=== PATIENT | male | born 1945 | race Caucasian/White ===

== ENCOUNTER 2018-02-22 14:56 | Emergency (ER) | payer MEDICARE, BC ==
[~2018-02-22] VITALS: Ht 177.8 cm; Wt 103.5 kg
[2018-02-22 15:40] LABS: BASOPHILS % (AUTO) 0.6 % (0-1); EOSINOPHILS # (AUTO) 0.2 X10'3 (0-0.9); EOSINOPHILS % (AUTO) 3.4 % (0-6); HEMATOCRIT 42.9 % (42.0-52.0); HEMOGLOBIN 14.9 g/dl (14.0-17.9); LYMPHOCYTES # (AUTO) 0.8 X10'3 (1.1-4.8); LYMPHOCYTES % (AUTO) 17.5 % (21-51); MEAN CORPUSCULAR HEMOGLOBIN 31.8 PG (27.0-31.0); MEAN CORPUSCULAR HGB CONC 34.8 % (33.0-36.5); MEAN CORPUSCULAR VOLUME 91.4 FL (78-98); MEAN PLATELET VOLUME 7.6 FL (7.4-10.4); MONOCYTES # (AUTO) 0.8 X10'3 (0-0.9); MONOCYTES % (AUTO) 16.2 % (2-12); NEUTROPHILS % (AUTO) 62.3 % (42-75); PLATELET COUNT 163 X10'3 (140-440); RED BLOOD COUNT 4.69 X10'6 (4.70-6.10); WHITE BLOOD COUNT 4.8 X10'3 (4.5-11.0)
[2018-02-22 15:49] LABS: INR 1.1 INR; PARTIAL THROMBOPLASTIN TIME 30 SECONDS (22-32); PROTHROMBIN TIME 11.2 SECONDS (9.0-12.0)
[2018-02-22 15:58] LABS: ALANINE AMINOTRANSFERASE 34 U/L (12-78); ALBUMIN 3.8 G/DL (3.4-5.0); ALKALINE PHOSPHATASE 126 IU/L (46-116); ANION GAP 10 (8-16); ASPARTATE AMINO TRANSFERASE 23 U/L (10-37); BILIRUBIN,TOTAL 0.5 MG/DL (0.1-1.0); BLOOD UREA NITROGEN 17 MG/DL (7-18); BUN/CREATININE RATIO 13.3 (5.4-32.0); CALCIUM 8.8 MG/DL (8.5-10.1); CHLORIDE 104 MMOL/L (99-107); CREATININE 1.28 MG/DL (0.60-1.10); GLUCOSE 122 MG/DL (70-104); POTASSIUM 3.7 MMOL/L (3.5-5.1); SODIUM 141 MMOL/L (135-145); TOTAL CARBON DIOXIDE 26.6 MMOL/L (24-32); TOTAL PROTEIN 7.5 G/DL (6.4-8.2); eGFR 55 ML/MIN
[2018-02-22] MEDS ORDERED: ipratropium/albuterol 3ml nebule NEB ONE ×2 (18:40→21:35)
[2018-02-22] MEDS ORDERED: methylPREDNISolone sod succ 125mg/2ml vial IV ONE (18:40)
[2018-02-22] MEDS ORDERED: levoFLOXACIN-Levaquin 750MG/D5 150 ML IV STA (18:53)
[2018-02-22] MEDS ORDERED: TRAZ-146 PO (20:05)
[2018-02-22] MEDS ORDERED: ATOR20TA66 PO (20:05)
[2018-02-22] MEDS ORDERED: ASPI-955 (20:05)
[2018-02-22] MEDS ORDERED: ESOM40CA54 PO (20:05)
[2018-02-22] MEDS ORDERED: LEVO175T2 PO (20:05)
[2018-02-22] MEDS ORDERED: PARO20TA6 PO (20:05)
[2018-02-22] MEDS ORDERED: PRED20TA PO (22:53)
[2018-02-22] MEDS ORDERED: AZIT250T PO (22:53)
[2018-02-22] MEDS ORDERED: ALBU8.5H8 IH (22:53)
[2018-02-22 23:01] VITALS: BP 137/77
== END 2018-02-22 23:03 | disposition home or self-care (01) ==
LOC: ER 14:57
DX: J40 Bronchitis, not specified as acute or chronic (principal); I25.10 Atherosclerotic heart disease of native coronary artery without angina pectoris; I25.2 Old myocardial infarction; G43.909 Migraine, unspecified, not intractable, without status migrainosus; Z79.899 Other long term (current) drug therapy
CPT/HCPCS: 36415; 71045; 80053; 83605; 83880; 84484; 85025; 85610; 85730; 87040; 93005; 94640; 94760; 96365; 96366; 96375; 99285; J1956; J2930

== ENCOUNTER 2024-06-05 14:08 | Emergency (ER) | payer BC, MEDICARE ==
[~2024-06-05 14:08] MED LIST: ALBU8.5H17 IH; ASPI-955; ATOR20TA66 PO; ESOM40CA66 PO; LEVO175T2 PO; PARO20TA6 PO; TRAZ-256 PO
== END 2024-06-05 14:28 | disposition left against medical advice (07) ==
LOC: ER 14:08
DX: I10 Essential (primary) hypertension (principal); Z53.21 Procedure and treatment not carried out due to patient leaving prior to being seen by health care provider

== ENCOUNTER 2025-08-26 09:51 | Day surgery (SDC) | payer BC ==
[2025-08-26] VITALS (12 sets, daily range): BP systolic 124–144; BP diastolic 60–72; PULSE 65–74; RESP 15–22; TEMP 97.8; O2SAT 95–100
[~2025-08-26] VITALS: Ht 177.8 cm; Wt 97.1 kg
[~2025-08-26 09:51] MED LIST changes: -ALBU8.5H17 IH; +ASPI-1265 PO; -ASPI-955; -ESOM40CA66 PO; +IRON PO; +PARO10TA4 PO; -PARO20TA6 PO; -TRAZ-256 PO; +VIT B12 PO; +VIT C PO; +ringers solution, lacted 1,000 ML IV SCH; +simethicone 40mg/0.6ml oral drops 15ml ONE
[2025-08-26] MEDS ORDERED: MIDAZolam 1 MG/ML 5ML VIAL ONE (13:09)
[2025-08-26] MEDS ORDERED: fentaNYL/PF 50MCG/1 ML 2ML syringe ONE (13:09)
--- NOTE | 2025-08-28 15:21 | PATHOLOGY REPORT ---
[facility] [address] [place] [address] SURGICAL PATHOLOGY REPORT CaseNumber: [id number] Surgeon:Tasha De La Rosa M.D. CLINICAL INFORMATION CLINICAL INFORMATION: Cecal mass. Iron deficiency anemia. DIAGNOSIS DIAGNOSIS: A.COLON, CECUM; BIOPSY - ADENOCARCINOMA. DIAGNOSIS: B.COLON, ASCENDING; BIOPSY - TUBULAR ADENOMAS, ALL PIECES. DIAGNOSIS: C.COLON, TRANSVERSE; BIOPSY - TUBULAR ADENOMAS, MULTIPLE PIECES. 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 DIAGNOSIS: E.COLON, RECTUM; BIOPSY - TUBULAR ADENOMA. MICROSCOPIC DESCRIPTION A. COLON, CECUM MICROSCOPIC DESCRIPTION: One H&E stained slide from part A is examined. Present are colonic mucosal pieces containing adenocarcinoma. The adenocarcinoma grows as single and complex glands, as well as individual cells and non-gland forming clusters. Nuclei are enlarged, pleomorphic, and contain prominent nucleoli. There is loss of polarization. The neoplasm is set within an altered fibroinflammatory stroma. B. COLON, ASCENDING MICROSCOPIC DESCRIPTION: One slide from part B is examined. Performed. C. COLON, TRANSVERSE MICROSCOPIC DESCRIPTION: One slide from part C is examined. Performed. D. COLON, SIGMOID MICROSCOPIC DESCRIPTION: Two slides from part D are examined. Performed. E. COLON, RECTUM MICROSCOPIC DESCRIPTION: One slide from part E is examined. Performed. (bb) GROSS DESCRIPTION A. COLON, CECUM GROSS DESCRIPTION: Received in a container of formalin labeled with the patient's name, number, and "cecum mass BX" is a 0.7 x 0.4 x 0.1 cm aggregate of irregularly shaped pieces of finnegan tissue submitted entirely as A1. The time at which the specimen was removed was not provided. The time at which the specimen was placed in formalin was not provided. B. COLON, ASCENDING GROSS DESCRIPTION: Received in a container of formalin labeled with the patient's name, number, and "ascending colon polyps" are four pieces of finnegan tissue 0.2-0.3 cm. The specimen is entirely submitted as B1. The time at which the specimen was removed was not provided. The time at which the specimen was placed in formalin was not provided. C. COLON, TRANSVERSE GROSS DESCRIPTION: Received in a container of formalin labeled with the patient's name, number, and "trans colon polyp" is a 1 x 0.8 x 0.2 cm aggregate of irregularly shaped pieces of finnegan tissue. The specimen is entirely submitted as C1. The time at which the specimen was removed was not provided. The time at which the specimen was placed in formalin was not provided. D. COLON, SIGMOID GROSS DESCRIPTION: Received in a container of formalin labeled with the patient's name, number, and "sigmoid polyp" is a 1.4 x 1.1 x 0.7 cm polypoid piece of finnegan tissue. The specimen is sectioned. The specimen is entirely submitted as D1-D2. The time at which the specimen was removed was not provided. The time at which the specimen was placed in formalin was not provided. E. COLON, RECTUM GROSS DESCRIPTION: Received in a container of formalin labeled with the patient's name, number, and "rectum polyp" are two polypoid pieces of finnegan tissue 0.4 x 0.3 x 0.1 and 0.5 x 0.3 x 0.2 cm. The specimen is entirely submitted as E1. The time at which the specimen was removed was not provided. The time at which the specimen was placed in formalin was not provided. SYNOPTIC REPORT SYNOPTIC TEXT: IMMUNOHISTOCHEMICAL (IHC) TESTING FOR MISMATCH REPAIR (MMR) PROTEINS - specimen A MLH1: Intact nuclear expression (normal) MSH2: Intact nuclear expression (normal) MSH6: Intact nuclear expression (normal) PMS2: Intact nuclear expression (normal) Antibody clones utilized (Dako): MLH1: ES05; MSH2: FE11; MSH6: EP49; PMS2: EP51 Detection system: EnVision FLEX detection kit Scoring system: Intact nuclear expression: Unequivocal nuclear staining in viable tumor cells, in the presence of acceptable internal positive controls (nuclear staining in lymphocytes, fibroblasts or normal epithelium in the vicinity of the tumor). Loss of nuclear expression: Unequivocal loss of nuclear staining or focal weak equivocal nuclear staining in the viable tumor cells in the presence of internal positive controls Comment: The use of diagnostic immunohistochemical stains is standard in most laboratories, though some antibodies are still under consideration by the Food and Drug Administration. Only formalin fixed paraffin embedded sections are utilized for testing purposes. The antibodies used in this study have been tested and shown to be effective in our Laboratory. Background nonneoplastic tissue with intact nuclear expression is present for internal control purposes. Electronically signed by: King Saha M.D. 08/28/2025 2:43:00 PM
[2025-09-16] MEDS ORDERED: MELATONIN PO (09:32)
[2025-09-16] MEDS ORDERED: TUMERIC PO (09:32)
[2025-09-16] MEDS ORDERED: MAGNESIUM PO (09:32)
[2025-09-16] MEDS ORDERED: MORINGA PO (09:32)
[2025-09-16] MEDS ORDERED: [UNRECOGNIZED DRUG - CODE] PO (13:17)
[2025-09-16] MEDS ORDERED: FERR-119 PO (13:17)
[2025-09-16] MEDS ORDERED: MAGN400C PO (13:17)
[2025-09-16] MEDS ORDERED: MELA3CAP2 PO (13:17)
[2025-09-16] MEDS ORDERED: ASCO10004 PO (13:17)
== END 2025-08-26 15:35 | disposition home or self-care (01) ==
LOC: GI LAB 09:51
PROVIDERS: ATTEND Internal Medicine Gastroenterology
DX: D50.9 Iron deficiency anemia, unspecified (principal); K57.30 Diverticulosis of large intestine without perforation or abscess without bleeding; D12.0 Benign neoplasm of cecum; D12.2 Benign neoplasm of ascending colon; D12.3 Benign neoplasm of transverse colon; D12.5 Benign neoplasm of sigmoid colon; D12.8 Benign neoplasm of rectum; E78.5 Hyperlipidemia, unspecified; Z83.3 Family history of diabetes mellitus; Z79.890 Hormone replacement therapy; Z79.82 Long term (current) use of aspirin; Z82.49 Family history of ischemic heart disease and other diseases of the circulatory system; Z95.1 Presence of aortocoronary bypass graft
CPT/HCPCS: 45380; 45385; 88305; 88341; 88342; 99153; G0500; J2250; J3010; J7120; Z7512; 45382; A4620; C1889

== ENCOUNTER 2025-09-17 12:32 | Inpatient (IN) | payer BC ==
[2025-09-16 09:40] LABS: MEAN PLATELET VOLUME 8.4 FL (7.4-10.4); PRE OP PLATELET COUNT 295 X10'3 (140-440); PRE OP WHITE BLOOD COUNT 6.3 10'3 (4.8-10.8)
[2025-09-16 10:13] LABS: CREATININE 1.07 MG/DL (0.60-1.10); PRE OP ALT 33 U/L (30-65); PRE OP ANION GAP 9 (8-16); PRE OP AST 24 U/L (10-37); PRE OP BILIRUB, TOTAL 0.7 MG/DL (0.0-1.0); PRE OP GLUCOSE 154 MG/DL (70-104); PRE OP POTASSIUM 3.8 MMOL/L (3.4-5.1); PRE OP SODIUM 142 MMOL/L (135-145); TOTAL CARBON DIOXIDE 26.2 MMOL/L (24-32); eGFR 66 ML/MIN
[2025-09-16 10:39] LABS: RED CELL DISTRIBUTION WIDTH 24.7 % (11.5-14.5)
[2025-09-16 10:41] LABS: PRE OP HEMATOCRIT 29.4 % (42.0-52.0); PRE OP HEMOGLOBIN 10.1 g/dL (14.0-17.9)
[2025-09-16 11:08] LABS: PLATELET ESTIMATE NORMAL
[2025-09-16 11:09] LABS: ELLIPTOCYTES 1+
[2025-09-17] VITALS (20 sets, daily range): BP systolic 123–160; BP diastolic 58–103; PULSE 63–89; RESP 16–28; TEMP 97.4–99.3; O2SAT 92–98
[~2025-09-17] VITALS: Ht 177.8 cm; Wt 90.6 kg
[2025-09-17] MEDS: ceFAZolin 2gm/dext,iso 50mL 50 ML IV ONE (05:30)
[~2025-09-17 12:32] MED LIST changes: +ASCO10004 PO; +FERR-119 PO; -IRON PO; +MAGN400C PO; +MELA3CAP2 PO; +MORINGA PO; +TUMERIC PO; -VIT B12 PO; -VIT C PO; +[UNRECOGNIZED DRUG - CODE] PO; -ringers solution, lacted 1,000 ML IV SCH; -simethicone 40mg/0.6ml oral drops 15ml ONE
[2025-09-17] MEDS: ringers solution, lacted 1,000 ML IV SCH (13:48)
--- NOTE | 2025-09-17 16:25 | HISTORY AND PHYSICAL ---
History & Physical Providers to CC CC: CAIN BASILIO MD ~ History of Present Illness Reason for Admit\Complaint: Colon cancer of the ascending colon History of Present Illness Patient is an 79-year-old gentleman who was seen by me in the office two days ago with new diagnosis of biopsy positive colorectal cancer. He has a remote history of anemia and was recently admitted to the hospital for this. In the hospital he received iron transfusion and blood transfusion. He was not willing to drink the prep for colonoscopy and this was done as an outpatient a week or two ago. Biopsy of a large mass in the cecum was positive for adenocarcinoma. He was referred to me for surgical management. He is here today for elective right hemicolectomy Allergies: Coded Allergies: No Known Allergies (Unverified , 01/17/13) Home Medications Home Medications Active Reported Melatonin 3 Mg Capsule 1 Cap PO HS Vitamin B-12 (Cyanocobalamin (Vitamin B-12)) 1,000 Mcg Tablet 1 Tab PO DAILY Vitamin C (Ascorbic Acid) 1,000 Mg Tablet 1 Tab PO DAILY DIRECTED Iron (Ferrous Sulfate) 325 Mg (65 Mg Iron) Tablet 1 Tab PO DAILY [Tumeric] PO DAILY [Moringa] PO DAILY PAXIL tablet (Paroxetine Hcl) 10 Mg Tablet 1 Tab PO Q48H 30 Days Aspirin 81 Mg Tab.chew 1 Tab PO DAILY 30 Days Atorvastatin Calcium 20 Mg Tablet 40 Mg PO HS Synthroid* (Levothyroxine Sodium) 175 Mcg Tab 1 Tab PO DAILY Past Medical History Past Medical History Hyperlipidemia Depression/anxiety Hypothyroidism Past Surgical History Surgical History Comment Laparoscopic cholecystectomy Knee surgery Family History Family History: FH: CABG (coronary artery bypass surgery) MOTHER FH: breast cancer MOTHER FH: diabetes mellitus FATHER Past Social History Social History Comment Negative x3 He is a retired bus driver school Health Maintenance Health Maintenance Not applicable ROS ROS Reviewed and negative with the exception of fatigue, dyspnea and other symptomatic anemia Exam Vitals: Vital Signs Date Time Temp Pulse Resp B/P (MAP) Pulse Ox O2 Delivery O2 Flow Rate FiO2 09/17/25 13:10 Room Air 09/17/25 13:10 97.4 63 16 127/58 (81) 98 General: 79-year-old male in no acute distress HEENT: No scleral icterus or conjunctival injection Neck: Supple and nontender Chest: Lungs clear to auscultation bilaterally Cardiovascular: Regular rate and rhythm without murmurs Abdomen: Soft and nondistended Extremities: Well-perfused without edema Central Nervous System: Grossly intact Musculoskeletal: 5/5 strength in all four extremities Skin: Warm and dry Diagnostic Data Last Recorded Lab Results: 09/16/[id number]/25921 Problems: (1) Colon cancer Assessment & Plan: The risks, benefits, and alternatives to a robotic assisted, laparoscopic possible open right hemicolectomy were discussed with the patient and his spouse. Risks include, but are not limited to, bleeding, infection, injury to intra-abdominal structures, leakage from the intestine and the need for additional surgery. Patient verbalized understanding and wishes to proceed with surgery. We will do so today as scheduled Problem Qualifiers (1) Colon cancer: Colon location: ascending Qualified Codes: C18.2 - Malignant neoplasm of ascending colon CAIN BASILIO MD Sep 17, 2025 16:25
[2025-09-17] MEDS ORDERED: BUPIVAcaine 2.5mg/ml inj 50ml vial (contains preservative) ONE (16:28)
[2025-09-17] MEDS ORDERED: LIDOcaine 1% 30ml preserv. free vial ONE (16:28)
[2025-09-17] MEDS ORDERED: INDOCYANINE GREEN 25 MG/10 ML VIAL IV ONE (16:31)
[2025-09-17] MEDS ORDERED: rocuronium 10mg/ml inj IV ONE (16:39)
[2025-09-17] MEDS ORDERED: fentaNYL /PF 50mcg/ml 5ml ampule ONE (16:39)
[2025-09-17] MEDS ORDERED: propofol inj 20 ML IV ONE (16:41)
[2025-09-17] MEDS ORDERED: metroNIDAZOLE-Flagyl 500mg/NS 100 ML IV ONE (17:07)
[2025-09-17] MEDS ORDERED: labetalol 20mg/4ml (5mg/ml) syringe IV PRN (17:30)
[2025-09-17] MEDS ORDERED: hydrALAZINE 20mg/ml inj. IV PRN (17:30)
[2025-09-17] MEDS ORDERED: ondansetron/PF 4mg/2ml inj IV PRN (17:30)
[2025-09-17] MEDS ORDERED: acetaminophen 1,000mg/100ml IV 100 ML IV PRN (17:30)
[2025-09-17] MEDS: LIDOcaine 1% 30ml preserv. free vial IJ ONE (18:52)
[2025-09-17] MEDS: BUPIVAcaine/PF 2.5 mg/ml (0.25%) 30ml vial IJ ONE (18:52)
[2025-09-17] MEDS ORDERED: ondansetron/PF 4mg/2ml inj ONE (19:07)
[2025-09-17] MEDS ORDERED: metoprolol tartrate 1mg/ml inj IV ONE (19:07)
[2025-09-17] MEDS ORDERED: glycopyrrolate 0.2mg/ml inj ONE (19:07)
[2025-09-17] MEDS ORDERED: PCA WASTE DOCUMENTATION 1 MG ML MC SCH (20:10)
--- NOTE | 2025-09-17 20:21 | OPERATIVE REPORT ---
Operative Report Providers to CC CC: BAUTISTA BASILIO MD ~ Date of Procedure: Sep 17, 2025 Pre-Operative Diagnosis: colon cancer Post-Operative Diagnosis SAME as PRE-Op Procedure Performed Robotic assisted, laparoscopic right hemicolectomy Surgeon: Bautista Basilio MD FACS Management Supervisor None Anesthesiologist: Sathya Davis Type of Anesthesia: General Findings: Tumor in the cecum adjacent to the ileocecal valve with no obvious extraluminal extension Isoperistaltic ileocolic anastomosis with excellent blood flow confirmed using firefly/fluorescent mesenteric angiography Wound class II Complications None Prosthetics\Implants used: None Estimated Blood Loss: Less than 20 cc Specimen Removed: Terminal ileum, ascending colon and proximal transverse colon Description of Procedure: Patient was brought to the operating room and identified by the nursing staff and the attending physician. Patient was placed supine and general anesthesia was induced. Preoperative antibiotics were given. Iqbal catheter was placed. The abdomen was prepped and draped in the standard sterile fashion. Veress needle technique was used at ramos's point in the abdomen was insufflated without incident. Abdomen was entered through the left mid abdomen and surveyed laparoscopically. Ports were placed in the suprapubic left lower abdomen and left upper quadrant. Stapling port was in the left upper quadrant. Patient was placed in Trendelenburg position with the right side up. PlayCrafter robotic arm was docked to the patient and instruments were guided into the abdomen under la paroscopic visualization. Small bowel was swept towards the left in the ascending colon was tented to the anterior abdominal wall. Right colic vessels were circumferentially dissected and the retroperitoneal plane was developed. Vessels were divided with the vessel sealer and the retroperitoneal plane mobilized. The duodenum was swept away from the right and transverse mesentery. Dissection was carried up to the hepatic flexure until a window was created visualizing the right lobe of the liver. Mesentery was divided anterior to the duodenum and carried up to the proximal transverse colon. Mesentery was divided using the vessel sealer down towards the terminal ileum. Window was created through the mesentery to the terminal ileum which was divided with a robotic linear cutting stapler. The proximal transverse colon was imaged using firefly technique showing line of devascularization. Just distal to this, the transverse colon was divided with a robotic linear cutting stapler. The white line of Toldt was divided, completely freeing up the specimen which was swept into the pelvis. Neoterminal ileum was laid adjacent to the proximal transverse colon and stay sutures were placed. An isoperistaltic, ileocolic anastomosis was created using a 60 mm linear cutting stapler. Enterotomy and colotomy were closed with a common running 3-0 V lock absorbable suture in a Beulah fashion. Suture line was reinforced with a running Lembert suture. Instruments were then removed and the de Jie robotic arm was undocked from the patient. The 12 mm port site was removed and it was closed percutaneously with 0 Vicryl suture under laparoscopic visualization. The specimen was secured with a laparoscopic grasper. The suprapubic port was lengthened transversely over the lower portion of the rectus muscle on the left. This was deepened down to the anterior rectus sheath which was opened in a vertical fashion and using muscle-splitting technique an Pee wound protector was placed. Specimen was delivered. Pee was removed. Gloves were changed. Peritoneum was closed with a running absorbable suture and the anterior rectus sheath was closed with a running PDS suture. Wound was irrigated and skin closed at all sites with skin ellie. Patient was awakened after dressings were applied and taken to the postanesthesia care unit in stable condition. Counts repoted as correct: Yes BAUTISTA BASILIO MD Sep 17, 2025 20:21
[2025-09-18] VITALS (7 sets, daily range): BP systolic 109–151; BP diastolic 45–66; PULSE 75–83; RESP 16–22; TEMP 97.1–99.8; O2SAT 90–95
[2025-09-18] MEDS: ketorolac trometh 15mg/ml vial 15 MG/ML ML IV SCH (02:31)
[2025-09-18 05:54] LABS: MEAN PLATELET VOLUME 8.5 FL (7.4-10.4); RED CELL DISTRIBUTION WIDTH 25.8 % (11.5-14.5)
[2025-09-18 06:10] LABS: CREATININE 1.01 MG/DL (0.60-1.10); TOTAL CARBON DIOXIDE 27.2 MMOL/L (24-32); eCRCL 59 ML/MIN; eGFR 71 ML/MIN
[2025-09-18] MEDS: ringers solution, lacted 1,000 ML IV SCH ×2 (07:04→16:08)
[2025-09-18] MEDS: levoTHYROXINE 175mcg tablet PO SCH (07:57)
[2025-09-18] MEDS: enoxaparin 40mg/0.4ml syringe SQ SCH (07:57)
--- NOTE | 2025-09-18 15:36 | PROGRESS NOTE ---
Progress Note Dictate Providers to CC ~ Progress Note: Subsequent surgical care on an 79-year-old gentleman who is postoperative day 1, status post robotic assisted, laparoscopic right hemicolectomy Passed a small amount of flatus Tolerating clear liquid diet Incisions dressed and dry Full liquid diet Anticipate discharge home in the next 24-48 hours Antibiotic Ordered?: No Objective Vitals Vital Signs Date Time Temp Pulse Resp B/P (MAP) Pulse Ox O2 Delivery O2 Flow Rate FiO2 09/18/25 10:23 97.1 76 16 112/56 (74) 92 Room Air 09/18/25 06:30 2.0 Lab Results: 09/18/25 0510 09/18/25 0510 Problem\Assessment\Plan Problems/Diagnosis: (1) Colon cancer Problem Qualifiers (1) Colon cancer: Qualified Codes: C18.2 - Malignant neoplasm of ascending colon CAIN BASILIO MD Sep 18, 2025 15:36
[2025-09-18] MEDS: ringers solution, lactated 500ml IV solution IV ONE (18:03)
[2025-09-19 05:59] LABS: CREATININE 0.92 MG/DL (0.60-1.10); TOTAL CARBON DIOXIDE 29.0 MMOL/L (24-32); eCRCL 65 ML/MIN; eGFR 79 ML/MIN
[2025-09-19 06:07] LABS: MEAN PLATELET VOLUME 8.5 FL (7.4-10.4); RED CELL DISTRIBUTION WIDTH 26.0 % (11.5-14.5)
[2025-09-19 06:30] VITALS: BP 140/62; PULSE 86; RESP 24; TEMP 98.2; O2SAT 93
[2025-09-19 06:54] LABS: PLATELET ESTIMATE NORMAL
[2025-09-19 06:55] LABS: ELLIPTOCYTES 1+
--- NOTE | 2025-09-19 09:12 | RADIOLOGY REPORT ---
Date: 09/19/2025 08:25 AM Examination: DI ABDOMEN,SINGLE VIEW(KUB) History: abdominal pain Comparison: None TECHNIQUE: Frontal views of the abdomen was obtained. FINDINGS: Bowel gas pattern is nonobstructive. Gaseous distended loops of colon and small bowel. Iqbal catheter projects over the expected region of the urinary bladder. Surgical clips project over the abdomen. The lung bases are collimated from field of view. No acute osseous abnormality identified. IMPRESSION: Nonspecific gas-filled loops of bowel.
[2025-09-19] MEDS: ringers solution, lacted 1,000 ML IV ONE (09:30)
[2025-09-19 10:00] VITALS: BP 161/64; PULSE 71; RESP 18; TEMP 98.3; O2SAT 96
--- NOTE | 2025-09-19 14:30 | PROGRESS NOTE ---
Progress Note Dictate Providers to CC ~ Progress Note: Subsequent surgical care on an 79-year-old gentleman who is postoperative day 2, status post robotic assisted, laparoscopic right hemicolectomy No flatus Incisions clean, dry, and intact Trial of regular diet Anticipate discharge home in the next 24-48 hours Antibiotic Ordered?: No Objective Vitals Vital Signs Date Time Temp Pulse Resp B/P (MAP) Pulse Ox O2 Delivery O2 Flow Rate FiO2 09/19/25 10:00 98.3 71 18 161/64 (96) 96 Room Air 09/19/25 09:30 1.0 Lab Results: 09/19/25 0520 09/19/25 0520 Problem\Assessment\Plan Problems/Diagnosis: (1) Colon cancer Problem Qualifiers (1) Colon cancer: Qualified Codes: C18.2 - Malignant neoplasm of ascending colon CAIN BASILIO MD Sep 19, 2025 14:30
[2025-09-19 18:00] VITALS: BP 158/56; PULSE 93; RESP 18; TEMP 98.3; O2SAT 96
[2025-09-19] MEDS: HYDROcodone/acetaminophen 5mg/325mg tablet PO PRN (18:53)
[2025-09-19 19:00] VITALS: RESP 18; O2SAT 96
[2025-09-19 22:00] VITALS: BP 133/56; PULSE 59; RESP 26; TEMP 98.9; O2SAT 93
[2025-09-20 06:00] VITALS: BP 145/64; PULSE 71; RESP 24; TEMP 98.5; O2SAT 94
[2025-09-20 06:03] LABS: MEAN PLATELET VOLUME 8.9 FL (7.4-10.4); RED CELL DISTRIBUTION WIDTH 25.7 % (11.5-14.5)
[2025-09-20 06:25] LABS: CREATININE 0.76 MG/DL (0.60-1.10); TOTAL CARBON DIOXIDE 28.2 MMOL/L (24-32); eCRCL 79 ML/MIN; eGFR > 90 ML/MIN
--- NOTE | 2025-09-20 11:04 | PROGRESS NOTE ---
Progress Note ID Providers to CC ~ Progress Note Progress Note: doing well/dc LINDA MURPHY MD Sep 20, 2025 11:04
--- NOTE | 2025-09-24 07:10 | PATHOLOGY REPORT ---
[facility] [address] [place] [address] SURGICAL PATHOLOGY REPORT CaseNumber: [id number] Surgeon:Bautista Valencia M.D. CLINICAL INFORMATION CLINICAL INFORMATION: The patient is an 79-year-old male with a previous history of an adenocarcinoma of the cecum. That specimen was examined and found to have ML1 intact nuclear expression, MSH2 intact nuclear expression, MSH6 intact nuclear expression, PSM2 intact nuclear expression. No defects in mismatch repair proteins (MMR) were detected ([id number], 08/26/2025). DIAGNOSIS DIAGNOSIS: COLON, ASCENDING; HEMICOLECTOMY - INVASIVE MODERATE TO POORLY DIFFERENTIATED ADENOCARCINOMA, 3 CM PROXIMAL TO DISTAL LENGTH, EXTENDING THROUGH MUSCULAR WALL INTO ADJACENT FAT. - RADIAL MARGIN CLEAR BY 2.5 CM. - PROXIMAL MARGIN CLEAR BY 3 CM. - DISTAL MARGIN CLEAR BY 26 CM . - METASTATIC MODERATE TO POORLY DIFFERENTIATED ADENOCARCINOMA TO FIVE OF THIRTEEN LYMPH NODES (5/13). MICROSCOPIC DESCRIPTION MICROSCOPIC DESCRIPTION: Eighteen slides are reviewed of the right ascending colon colectomy. Present undermining the small bowel is a large ulcerated moderate to poorly differentiated adenocarcinoma. As identified grossly the annular ulcerated neoplasm, measures 3 cm, in proximal to distal length. The medium sized malignant glands are lined by tall columnar dysplastic cells which demonstrate an increased n/c ratio. The nuclei are sometimes basally located and in other regions they palisade. The nuclei are oval to quite oblong. The chromatin is moderately coarse. Mitotic figures are quite numerous, 10 per one high power field. There is a moderately brisk desmoplastic reaction. The neoplasm undermines the small bowel mucosa of the ilial cecal region. There is small vessel invasion. The neoplasm extends completely through the muscular wall into the adjacent fat, though is grossly clear of the radial margins by 2.5 cm. Sections of the radial margin are fee of neoplasm. The proximal margin (ileum), and distal margin (colonic), are free of neoplasm. Thirteen lymph nodes are harvested. Five are found to contain metastatic moderate to poorly differentiated adenocarcinoma (5/13). The neoplasm broaches the lymph node capsule and extends into adjacent fat. Cross sections of the appendix reveal it to be benign without features of malignancy. The proximal appendiceal lining mucosa which is intact. Distally, there is fatty fibrous replacement of the lumen. The small bowel "polyp" was simply a fold of small bowell mucosa. (bb) GROSS DESCRIPTION GROSS DESCRIPTION: Received in a container of formalin labeled with the patient's name, number, and "ascending colon R colectomy" is a 32 cm length of bowel which includes 6 cm of terminal ileum, the ileocecal valve, and 26 cm of colon. The serosa is somewhat roughened and purple-finnegan. There is a uniform caliber vermiform appendix present which measures 5 cm long by 0.5 cm in diameter. Sectioning the appendix reveals a mildly dilated lumen containing stool. Both ends of the bowel are closed by a row of surgical ellie. The bowel is opened lengthwise to reveal a small amount of partially formed stool. 3 cm from the proximal mucosal resection margin and 26 cm from the distal mucosal resection margin is an annular ulcerated neoplasm which measures 3 cm proximal to distal. The neoplasm is present at the cecum near the base of the appendix and 2.5 cm from the closest radial resection margin. Sectioning the neoplasm reveals it invading and destroying the muscularis penetrating through to the fat. Sectioning the fat reveals thirteen lymph node candidates. Sections are submitted as follows: A1) Proximal mucosal resection marginA2) Distal mucosal resection marginA3) Closest radial resection marginA4) AppendixA5) Base of appendixA6-A9) [id number]) [id number] A12) Three lymph node candidates per [id number]) Two bisected lymph node candidates per [id number]) Single bisected lymph node [id number]) Single bisected lymph node [id number]) Single sectioned lymph node candidate The time at which the specimen was removed was not provided. The time at which the specimen was placed in formalin was not provided. (meb) SYNOPTIC REPORT SYNOPTIC TEXT: Colon and Rectum - Resection Specimen Procedure: Right hemicolectomy Tumor Tumor Site: Cecum Histologic Type: Adenocarcinoma Histologic Grade: G2, moderately differentiated Tumor Size: 3.0 Centimeters (cm) Tumor Extent: Invades through muscularis propria into the pericolic or perirectal tissue Macroscopic Tumor Perforation: Not identified Lymphatic and / or Vascular Invasion: Small vessel Perineural Invasion: Not identified Treatment Effect: No known presurgical therapy Margins Margin Status for Invasive Carcinoma: All margins negative for invasive carcinoma Closest Margin(s) to Invasive Carcinoma: Radial (circumferential) - 2.5 cm Distance from Invasive Carcinoma to Closest Margin: 2.5 cm Distance from Invasive Carcinoma to Radial (Circumferential) Margin: Distance already reported as closest margin Margin Status for Non-Invasive Tumor: All margins negative for high-grade dysplasia / intramucosal carcinoma and low-grade dysplasia Regional Lymph Nodes Regional Lymph Node Status: Tumor present in regional lymph node(s) Number of Lymph Nodes with Tumor: 5 Number of Lymph Nodes Examined: 13 Tumor Deposits: Not identified pTNM Classification (AJCC 8th Edition) Reporting of pT, pN, and (when applicable) pM categories is based on information available to the pathologist at the time the report is issued. As per the AJCC (Chapter 1, 8th Ed.) it is the managing physician's responsibility to establish the final pathologic stage based upon all pertinent information, including but potentially not limited to this pathology report. pT Category: pT3 pN Category: pN2a Prior Biopsy ([facility] Standard 2.1) A biopsy was performed in-house: ([id number], 08/26/2025 Additional Findings Additional Findings: None identified Best Tumor Blocks for Future Studies Tumor Block(s): A6-9 Normal Block(s): A1-2 ML1 intact nuclear expression, MSH2 intact nuclear expression, MSH6 intact nuclear expression, PSM2 intact nuclear expression. No defects in mismatch repair proteins (MMR) were detected ([id number], 08/26/2025). Electronically signed by: Itz Coley M.D. 09/23/2025 10:23:00 PM
--- NOTE | 2025-09-30 16:45 | DISCHARGE SUMMARY ---
Discharge Summary Providers to CC CC: BAUTISTA BASILIO MD ~ Discharge Summary Admission Diagnosis: colon cancer Admission Diagnosis Comment: Ascending colon cancer Hospital Course DATE OF ADMISSION: September 17, 2025 DATE OF DISCHARGE: September 20, 2025 Discharge Diagnosis\Comment: Ascending colon cancer Operations\Procedures: Robotic assisted, laparoscopic right hemicolectomy Consultants: Bautista Basilio MD FACS Complications: None Condition on DC: Stable Continued Medications: Ascorbic Acid (Vitamin C) 1,000 Mg Tablet 1 TAB PO DAILY DIRECTED Aspirin (Aspirin) 81 Mg Tab.chew 1 TAB PO DAILY for 30 Days, #30 TAB Atorvastatin Calcium (Atorvastatin Calcium) 20 Mg Tablet 40 MG PO HS Cyanocobalamin (Vitamin B-12) (Vitamin B-12) 1,000 Mcg Tablet 1 TAB PO DAILY Ferrous Sulfate (Iron) 325 Mg (65 Mg Iron) Tablet 1 TAB PO DAILY Levothyroxine* (Synthroid*) 175 Mcg Tab 1 TAB PO DAILY Melatonin (Melatonin) 3 Mg Capsule 1 CAP PO HS [Moringa] () PO DAILY Paroxetine Hcl (PAXIL tablet) 10 Mg Tablet 1 TAB PO Q48H for 30 Days, #30 TAB 0 Refills [Tumeric] () PO DAILY Discharge Summary: Patient was admitted for routine postoperative management following robotic assisted, laparoscopic right hemicolectomy for biopsy positive colorectal cancer. Final pathology was as follows: DIAGNOSIS: COLON, ASCENDING; HEMICOLECTOMY - INVASIVE MODERATE TO POORLY DIFFERENTIATED ADENOCARCINOMA, 3 CM PROXIMAL TO DISTAL LENGTH, EXTENDING THROUGH MUSCULAR WALL INTO ADJACENT FAT. - RADIAL MARGIN CLEAR BY 2.5 CM. - PROXIMAL MARGIN CLEAR BY 3 CM. - DISTAL MARGIN CLEAR BY 26 CM . - METASTATIC MODERATE TO POORLY DIFFERENTIATED ADENOCARCINOMA TO FIVE OF THIRTEEN LYMPH NODES (5/13). Patient was monitored as an inpatient and started on a clear liquid diet. His diet was advanced until he was tolerating a regular diet, and having bowel function and pain adequately controlled with oral pain medication on postoperative day 3. He was discharged home at that point. *Problems/Diagnosis: (1) Colon cancer Total Time Spent on D/C: Up to 30 Minutes Counseling Services Smoking & Tobacco Cessation: N/A Problem Qualifiers (1) Colon cancer: Qualified Codes: C18.2 - Malignant neoplasm of ascending colon BAUTISTA BASILIO MD Sep 30, 2025 16:45
== END 2025-09-20 11:25 | disposition home or self-care (01) | DRG 331 ==
LOC: PAS IN 13:02 → SUR 3N 13:42 → EDSTATUS 15:00
PROVIDERS: ADMIT Surgery; ATTEND Surgery
PROC: 8E0W4CZ Robotic Assisted Procedure of Trunk Region, Percutaneous Endoscopic Approach (ICD-10-PCS; 2025-09-17)
PROC: 0DTF4ZZ Resection of Right Large Intestine, Percutaneous Endoscopic Approach (ICD-10-PCS; principal; 2025-09-17 16:34)
DX: C19 Malignant neoplasm of rectosigmoid junction (principal); E03.9 Hypothyroidism, unspecified; F32.A Depression, unspecified; F41.9 Anxiety disorder, unspecified; E78.5 Hyperlipidemia, unspecified; Z79.82 Long term (current) use of aspirin; Z79.899 Other long term (current) drug therapy
CPT/HCPCS: 36415; 74018; 80048; 80053; 82948; 84443; 85008; 85025; 86885; 86900; 86901; 87081; 88309; A4215; A4615; A4618; C1758; G0378; J1650; J1885; J2003; J2405; J2704; J2710; J3010; J3490; J7120